=== PATIENT | male | born 1985 | race Two or more races ===

== ENCOUNTER 2023-09-24 11:15 | Emergency (ER) | payer MEDICAID, OTHER ==
[~2023-09-24] VITALS: Ht 175.3 cm; Wt 84.9 kg
[2023-09-24 12:21] VITALS: BP 180/91; PULSE 71; RESP 18; TEMP 98; O2SAT 96
[2023-09-24] MEDS ORDERED: IBUP-1456 PO (12:46)
[2023-09-24] MEDS: KETOROLAC TROMETH 60MG/2ML VIAL IM ONE (12:57)
== END 2023-09-24 13:03 | disposition home or self-care (01) ==
LOC: ER 11:15
DX: G56.03 Carpal tunnel syndrome, bilateral upper limbs (principal); J45.909 Unspecified asthma, uncomplicated; F12.10 Cannabis abuse, uncomplicated
CPT/HCPCS: 29125; 96372; 99283; J1885